=== PATIENT | female | born 1945 | race Caucasian/White ===

== ENCOUNTER → 2016-07-17 | Day surgery (SDC) | payer OTHER, BC ==
[2016-07-04 14:32] VITALS: Ht 170.2 cm; Wt 74.5 kg
[~2016-07-17] VITALS: Ht 170.2 cm; Wt 74.5 kg
[~2016-07-17] MED LIST: ACET1TAB84 PO; AMPH20TA2 PO; CYCL5TAB PO; DESV50TA2 PO; DEXAMETHASONE SOD INJ 4 MG/ML VIAL ONE; FRCT/ PO; HYDR0.5T PO; HYDR1CAP85 PO; HYDR200T5 PO; LIDOCAINE HCL 1% 20 ML VIAL ONE; OXYC-106 PO; [UNRECOGNIZED DRUG - CODE] PO
--- NOTE | 2016-07-17 07:18 | History & Physical Bridge - [place] ---
H&P Re-Evaluation Bridge Note: I have examined the patient, reviewed the History & Physical and in the interval since the performance of the History & Physical I have noted the following changes of clinical significance: No changes noted
--- NOTE | 2016-07-17 07:42 | Discharge Instructions-SurgCtr ---
Discharge Instructions Date of Service Jul 17, 2016. Visit Reason for Visit: Spinal Stenosis, Si Joint Pain Discharge Discharge Diagnosis / Problem: stenosis Discharge Goals Goal(s): Improve function Activity Recommendations Activity Limitations: as noted below Lifting Limitations: gradually increase as tolerated Exercise/Sports Limitations: rest today Shower/Bathe: no limitations Driving or Machine Use: resume 1 day after discharge Anesthesia . Post Anesthesia Instructions: If you have had General Anesthesia or IV Sedation: * Do not drive today. * Resume driving when surgeon permits. * Do not make important decisions or sign legal documents today. * Call surgeon for: 1. Temperature elevations greater than 101 degrees F. 2. Uncontrollable pain. 3. Excessive bleeding. 4. Persistent nausea and vomiting. 5. Medication intolerance (nausea, vomiting or rash). * For nausea and vomiting use only clear liquids such as: tea, soda, bouillon until nausea subsides, then gradually increase diet as tolerated. * If you have any concerns or questions, call your surgeon's office. If physician is unavailable and it is an emergency, call 911 or go to the nearest emergency room. . Diet Recommendations Home Diet: no limitations Fluid Restriction: None Procedures Procedures Performed: L2-3 EPIDURAL STEROID INJECTION, BILATERAL SACROILIAC JOINT INJECTION. Pending Studies Studies pending at discharge: no Medical Emergencies . Who to Call and When: Medical Emergencies: If at any time you feel your situation is an emergency, please call 911 immediately. . Non-Emergent Contact Non-Emergency issues call your: Surgeon Call Non-Emergent contact if: you have any medication questions . . "Provider Documentation" section prepared by Shin Wayne.
--- NOTE | 2016-07-17 07:42 | [facility] Post Operative Brief Note ---
Immediate Operative Summary Operative Date Jul 17, 2016. Pre-Operative Diagnosis SPINAL STENOSIS, BILATERAL SACROILIAC JOINT INJECTION. Post-Operative Diagnosis SAME Procedure(s) Performed L2-3 EPIDURAL STEROID INJECTION, BILATERAL SACROILIAC JOINT INJECTION. Surgeon DR. Jonelle DURAN Findings arthritis/stenosis Complication(s) None Disposition Recovery Room / PACU
[2016-07-17 07:43] VITALS: TEMP 36.8
[2016-07-17 07:58] VITALS: BP 135/84; PULSE 96; O2SAT 96
--- NOTE | 2016-07-17 08:12 | OPERATIVE REPORT ---
DATE OF OPERATION: 07/17/2016 PREOPERATIVE DIAGNOSIS: Bilateral sacroiliac joint inflammation and stenosis lumbar spine L2-L3. POSTOPERATIVE DIAGNOSIS: Same. PROCEDURE: Included an epidural steroid L2-3 lumbar spine and bilateral SI joint injections. SURGEON: Dr. Wayne. COMPLICATIONS: None. BLOOD LOSS: None. DESCRIPTION OF PROCEDURE: The patient was taken to minor procedure room here at the surgical center, placed prone, prepped and draped sterile, was able to engage the spinal needle to the 2-3 interspace without incident, 1 mL of dexamethasone injected. We did the same at the SI joints using biplanar fluoroscopy, able to see the SI joint on end. A mL of dexamethasone injected to each of these joints. The patient tolerated the procedure well and returned to recovery room satisfactory stable. I attest to the content of the Intraoperative Record and any orders documented therein. Any exceptio ns are noted below.
== END | disposition home or self-care (01) ==
LOC: X.SURG 06:33
PROVIDERS: ATTEND Orthopaedic Surgery Orthopaedic Surgery of the Spine
DX: M48.06 Spinal stenosis, lumbar region (principal); M46.1 Sacroiliitis, not elsewhere classified
CPT/HCPCS: 62323; G0260

== ENCOUNTER → 2016-10-24 | Day surgery (SDC) | payer OTHER, BC ==
[2016-10-17 09:49] VITALS: Ht 170.2 cm; Wt 72.3 kg
[~2016-10-24] VITALS: Ht 170.2 cm; Wt 72.3 kg
[~2016-10-24] MED LIST changes: -ACET1TAB84 PO; -DEXAMETHASONE SOD INJ 4 MG/ML VIAL ONE; -LIDOCAINE HCL 1% 20 ML VIAL ONE; +LIDOCAINE HCL 1% MPF 5 ML VIAL ONE
[2016-10-24] MEDS: DEXAMETHASONE SOD INJ 4 MG/ML VIAL ONE (08:09)
--- NOTE | 2016-10-24 08:14 | Discharge Instructions-SurgCtr ---
Discharge Instructions Date of Service Oct 24, 2016. Visit Reason for Visit: Spinal Stenosis, Si Joint Pain Discharge Discharge Diagnosis / Problem: same Discharge Goals Goal(s): Improve function Activity Recommendations Activity Limitations: as noted below Anesthesia . Post Anesthesia Instructions: If you have had General Anesthesia or IV Sedation: * Do not drive today. * Resume driving when surgeon permits. * Do not make important decisions or sign legal documents today. * Call surgeon for: 1. Temperature elevations greater than 101 degrees F. 2. Uncontrollable pain. 3. Excessive bleeding. 4. Persistent nausea and vomiting. 5. Medication intolerance (nausea, vomiting or rash). * For nausea and vomiting use only clear liquids such as: tea, soda, bouillon until nausea subsides, then gradually increase diet as tolerated. * If you have any concerns or questions, call your surgeon's office. If physician is unavailable and it is an emergency, call 911 or go to the nearest emergency room. . Diet Recommendations Home Diet: no limitations Procedures Procedures Performed: Bilateral Sacroiliac Joint Injections; L2-3 Epidual Steroid Injection Pending Studies Studies pending at discharge: no Medical Emergencies . Who to Call and When: Medical Emergencies: If at any time you feel your situation is an emergency, please call 911 immediately. . Non-Emergent Contact Non-Emergency issues call your: Surgeon . . "Provider Documentation" section prepared by Shin Wayne. .
--- NOTE | 2016-10-24 08:15 | [facility] Post Operative Brief Note ---
Immediate Operative Summary Operative Date Oct 24, 2016. Pre-Operative Diagnosis Low back and SI Joint pain along with lower extremity difficulty Post-Operative Diagnosis same Procedure(s) Performed Bilateral Sacroiliac Joint Injections; L2-3 Epidual Steroid Injection [address] Wayne Nurse Aide Surgeon(s) none Estimated Blood Loss 0ml Findings stenosis Specimens none Complication(s) None Disposition Recovery Room / PACU
[2016-10-24 08:18] VITALS: TEMP 36.5
[2016-10-24 08:27] VITALS: BP 128/82; PULSE 84; O2SAT 96
--- NOTE | 2016-10-28 08:57 | [facility] Operative Report ---
Operative Report Operative Date Oct 28, 2016. Pre-Operative Diagnosis Low back and SI Joint pain along with lower extremity difficulty Procedure(s) Performed Epidural steroid at L2-3 of the lumbar spine. Lateral sacroiliac joints as well. Surgeon Dr Wayne Emergency Management Coordinator Surgeon(s) none Estimated Blood Loss 0ml Findings Spinal stenosis and SI joint discomfort Specimens none Complication(s) None Disposition Recovery Room / PACU Description of Procedure Patient taken to the minor procedure room at [facility]. Placed prone prepped draped sterile able to gate engaged each of the SI joints with the needle. He is by fluoroscopy to access the SI joints. 1 mL of dexamethasone injected to each SI joint without complication. End up to the spinal area at L2-3 was also prepped draped sterile gauge to Tuey advance the epidural space at L2-3 of the lumbar spine. 1 mL of dexamethasone injected at this tear without incident. She tolerated the procedure well and returned to recovery room satisfactory and stable there were no complications I attest to the content of the Intraoperative Record and any orders documented therein. Any exceptions are noted below.
== END | disposition home or self-care (01) ==
LOC: X.SURG 06:49
PROVIDERS: ATTEND Orthopaedic Surgery Orthopaedic Surgery of the Spine
DX: M53.3 Sacrococcygeal disorders, not elsewhere classified (principal); M48.06 Spinal stenosis, lumbar region; M32.9 Systemic lupus erythematosus, unspecified; J45.909 Unspecified asthma, uncomplicated; Z79.899 Other long term (current) drug therapy
CPT/HCPCS: 62323; G0260

== ENCOUNTER → 2017-02-19 | Day surgery (SDC) | payer OTHER, BC ==
[2017-01-23 13:07] VITALS: Ht 170.2 cm; Wt 72.7 kg
[~2017-02-19] VITALS: Ht 170.2 cm; Wt 72.7 kg
[~2017-02-19] MED LIST changes: +DEXAMETHASONE SOD INJ 4 MG/ML VIAL ONE; -HYDR0.5T PO; +LIDOCAINE HCL 1% 20 ML VIAL ONE; -LIDOCAINE HCL 1% MPF 5 ML VIAL ONE
--- NOTE | 2017-02-19 10:34 | Discharge Instructions-SurgCtr ---
Discharge Instructions Date of Service Feb 19, 2017. Visit Reason for Visit: Spinal Stenosis, Si Joint Pain Discharge Discharge Diagnosis / Problem: same Discharge Goals Goal(s): Improve function Activity Recommendations Activity Limitations: as noted below Anesthesia . Post Anesthesia Instructions: If you have had General Anesthesia or IV Sedation: * Do not drive today. * Resume driving when surgeon permits. * Do not make important decisions or sign legal documents today. * Call surgeon for: 1. Temperature elevations greater than 101 degrees F. 2. Uncontrollable pain. 3. Excessive bleeding. 4. Persistent nausea and vomiting. 5. Medication intolerance (nausea, vomiting or rash). * For nausea and vomiting use only clear liquids such as: tea, soda, bouillon until nausea subsides, then gradually increase diet as tolerated. * If you have any concerns or questions, call your surgeon's office. If physician is unavailable and it is an emergency, call 911 or go to the nearest emergency room. . Diet Recommendations Home Diet: no limitations Procedures Procedures Performed: BILATERAL SACROILIAC JOINT INJECTIONS, EPIDURAL INJECTION L2-3, Pending Studies Studies pending at discharge: no Medical Emergencies . Who to Call and When: Medical Emergencies: If at any time you feel your situation is an emergency, please call 911 immediately. . Non-Emergent Contact Non-Emergency issues call your: Surgeon . . "Provider Documentation" section prepared by Shin Wayne. .
--- NOTE | 2017-02-19 10:35 | [facility] Operative Report ---
Operative Report Operative Date Feb 19, 2017. Pre-Operative Diagnosis SACROILIAC JOINT PAIN, SPINAL STENOSIS LUMBAR AREA. Post-Operative Diagnosis SAME Procedure(s) Performed BILATERAL SACROILIAC JOINT INJECTIONS, EPIDURAL INJECTION L2-3, Surgeon DR. Jonelle DURAN Findings arthritis Complication(s) None Disposition Recovery Room / PACU I attest to the content of the Intraoperative Record and any orders documented therein. Any exceptions are noted below.
[2017-02-19 10:36] VITALS: TEMP 37.1
[2017-02-19 10:55] VITALS: BP 150/68; PULSE 91; O2SAT 98
--- NOTE | 2017-02-19 11:43 | OPERATIVE REPORT ---
DATE OF OPERATION: 02/19/2017 PREOPERATIVE DIAGNOSES: Sacroiliitis, bilateral, and stenosis L2-L3. POSTOPERATIVE DIAGNOSES: Same. PROCEDURE: Injections bilateral SI joints and epidural at L2-L3. SURGEON: Shin Wayne DO COMPLICATIONS: Zero. BLOOD LOSS: Zero. DESCRIPTION OF PROCEDURE: The patient was taken to the minor procedure room, prepped and draped sterile. I engaged the sacroiliac joints bilaterally with 1% Xylocaine. I used biplanar fluoroscopy. I engaged the SI joint well. I was able to inject 1 mL of dexamethasone in each SI joint. We went up to the L2-L3 region, prepped and draped sterile. An 8 and 22-gauge Tuohy needle advanced to the epidural space. Air acceptance technique used. Dexamethasone 1 mL injected without incident. The patient tolerated the procedure well and discharged in improved and stable condition. I attest to the content of the Intraoperative Record and any orders documented therein. Any exceptions are noted below. MTDD
--- NOTE | 2017-03-05 10:34 | EDITING REQUIRED CODING QUERY ---
SUPPORTING DIAGNOSIS NEEDED A supporting diagnosis is required for the test/procedure performed on this patient in order for us to be reimbursed by the patient's insurance. Please provide a supporting diagnosis for the following test/procedure listed below next to the test name along with your signature. *If there is no additional diagnosis for this patient that would support the following test/procedure please document that below next to the test/procedure. Test(s)/Procedure(s) that require a supporting diagnosis: * EPIDURAL INJECTIONS DIAGNOSIS: Provider Signature: Date: Thank you Zoila [place] [employer] Once completed, please kindly fax back to [phone] For questions please call [phone]
== END | disposition home or self-care (01) ==
LOC: X.SURG 08:32
PROVIDERS: ATTEND Orthopaedic Surgery Orthopaedic Surgery of the Spine
DX: M46.1 Sacroiliitis, not elsewhere classified (principal); M48.061 Spinal stenosis, lumbar region without neurogenic claudication; J45.909 Unspecified asthma, uncomplicated; Z90.89 Acquired absence of other organs; Z90.49 Acquired absence of other specified parts of digestive tract; Z98.890 Other specified postprocedural states; Z82.49 Family history of ischemic heart disease and other diseases of the circulatory system; Z88.0 Allergy status to penicillin; Z88.2 Allergy status to sulfonamides; Z83.3 Family history of diabetes mellitus; Z80.3 Family history of malignant neoplasm of breast